=== PATIENT | male | born 1990 | race Hispanic/Latino ===

== ENCOUNTER 2023-10-07 22:22 | Emergency (ER) | payer SELFPAY ==
[2023-10-07 22:30] VITALS: BP 142/78; PULSE 100; RESP 20; TEMP 36.4; O2SAT 100
--- NOTE | 2023-10-08 01:05 | ED.DENTAL ---
HPI - Dental/Oral General Chief complaint: Dental/Oral <RODRIGO Charles Last Filed: 10/08/23 02:49> Stated complaint: tooth infection <RODRIGO Charles Last Filed: 10/08/23 02:49> Time Seen by Provider: 10/07/23 23:59 <RODRIGO Charles Last Filed: 10/08/23 02:49> Source: patient <RODRIGO Charles Last Filed: 10/08/23 02:49> Mode of arrival: ambulatory <RODRIGO Charles Filed: 10/08/23 02:49> Limitations: no limitations <RODRIGO Charles Filed: 10/08/23 02:49> History of Present Illness HPI Narrative: Patient is a 33-year-old male who presents the ED with report of both dental pain. Patient is [place]-speaking. 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 Patient reports he has had a cracked tooth, tooth #12 for some now. Over the last 1 week he has had increased pain surrounding that tooth. He saw his dentist 2 days ago and was prescribed amoxicillin and ibuprofen. Patient denies improvement of symptoms, reporting worsening pain. Also reports purple discoloration and swelling of gumline. Denies difficulty breathing or swelling. Denies fevers. Denies drainage from the tooth. He is scheduled to follow-up with his dentist on Wednesday to have the tooth extracted. <RODRIGO Charles Last Filed: 10/08/23 02:49> Related Data Allergies/adverse reactions: Allergies Allergy/AdvReac Type Severity Reaction Status Date / Time No Known Allergies Allergy Verified 10/07/23 22:35 <RODRIGO Charles Last Filed: 10/08/23 02:49> Review of Systems Review of Systems: CONSTITUTIONAL: Denies fever, chills, or sweats. ENT: See HPI. CARDIOVASCULAR: Denies chest pain. RESPIRATORY: Denies cough or dyspnea. GASTROINTESTINAL: Denies nausea, vomiting. <RODRIGO Charles Filed: 10/08/23 02:49> All systems reviewed & are unremarkable except as noted in HPI and below <Eliane Gu PA-C - Last Filed: 10/08/23 02:49> Exam Narrative: GENERAL: Well appearing, well-nourished, non-toxic, in no acute distress. HEAD: Normocephalic, atraumatic. ENT: Fractured tooth #12 left upper gumline with large periapical abscess. Focal TTP, erythema, gum inflammation. Small amount of purulent material draining from abscess. No trismus or stridor. Swelling noted of L upper jawline/maxillary region. No significant erythema or induration extending into facial cheek. RESPIRATORY: Airway patent, respirations nonlabored. CARDIOVASCULAR: Regular rate and rhythm MUSCULOSKELETAL: Moves all extremities. No gross deformities. SKIN: Warm, dry, normal color. NEURO: A&O X3. Speech clear. PSYCHIATRIC: Appropriate mood and affect. Normal interaction. <Eliane Gu PA-C - Last Filed: 10/08/23 02:49> Course TANK COOPER/PA Physician Supervision LISSY did discuss patient with me. I did present to bedside and appreciate a sizeable periodontal abscess that has already started draining. No trismus. PA plans to provide local anesthesia and perform needle aspiration versus incision and drainage via scalpel. I concur with this management. Will also investigate/confirm antibiotic previously prescribed and thus need for broadening. <Connie Arteaga MD - Last Filed: 10/08/23 13:21> Vital Signs Vital signs: Vital Signs Temperature 97.5 F L 10/07/23 22:30 Pulse Rate 100 10/07/23 22:30 Respiratory Rate 20 10/07/23 22:30 Blood Pressure 142/78 H 10/07/23 22:30 Pulse Oximetry 100 10/07/23 22:30 Oxygen Delivery Room Air 10/07/23 22:30 Temperature 97.5 F L 10/07/23 22:30 Pulse Rate 77 10/08/23 02:08 Respiratory Rate 18 10/08/23 02:08 Blood Pressure 139/81 10/08/23 02:08 Pulse Oximetry 100 10/08/23 02:08 Oxygen Delivery Room Air 10/07/23 22:30 <Eliane Gu PA-C - Last Filed: 10/08/23 02:49> Vital Signs Temperature 9
[2023-10-08] MEDS: AMPICILLIN SULB 3 GM/NS 100 ML 3 GM/100 ML VIAL IVPB (02:03)
[2023-10-08] MEDS: HYDROcodone/acetaminophen (*CRX) 5-325 MG TABLET 1 TAB PO (02:03)
[2023-10-08 02:08] VITALS: BP 139/81; PULSE 77; RESP 18; O2SAT 100
== END 2023-10-08 03:09 | disposition home or self-care (01) ==
PROVIDERS: Emergency Provider Physician Assistant
DX: K04.7 Periapical abscess without sinus (principal)
CPT/HCPCS: 41800; 96365; 99283; A9270; J0295